=== PATIENT | male | born 1970 | race Hispanic/Latino ===

== ENCOUNTER 2020-11-18 22:03 | Inpatient (IN) | payer SELFPAY ==
[~2020-11-18] VITALS: Ht 172.7 cm; Wt 62.3 kg
[2020-11-18 22:07] VITALS: BP 128/55
[2020-11-18 23:11] VITALS: BP 99/57
[2020-11-18] MEDS ORDERED: 0.9%NACL 50ML IV ONE (23:30)
[2020-11-18] MEDS ORDERED: VANCOMYCIN 1G VIAL IVPB ONE (23:30)
[2020-11-18] MEDS ORDERED: 0.9% NACL 250ML IVPB ONE (23:30)
[2020-11-18] MEDS ORDERED: PIP/TAZ ZOSYN 3.375G 3.375 GM VIAL IVPB ONE (23:30)
[2020-11-19] VITALS (7 sets, daily range): BP systolic 97–134; BP diastolic 53–69
[2020-11-19 00:37] LABS: BASOPHILS % (AUTO) 0.4 % (0.0-5.0); EOSINOPHILS % (AUTO) 3.6 % (0.0-8.0); HEMATOCRIT 32.1 % (42-54); LYMPHOCYTES % (AUTO) 13.1 % (21.0-51.0); MEAN CORPUSCULAR HEMOGLOBIN 25.2 pg (27.0-33.0); MEAN CORPUSCULAR HGB CONC 32.1 g/dL (32.0-36.0); MEAN CORPUSCULAR VOLUME 78.7 fL (79-99); MONOCYTES % (AUTO) 8.6 % (3.0-13.0); PLATELET COUNT (AUTO) 354 K/uL (130-400); RED BLOOD CELL COUNT(AUTO) 4.08 MIL/uL (4.50-6.20); RED CELL DISTRIBUTION WIDTH 15.4 % (11.0-15.5); WHITE BLOOD COUNT (AUTO) 9.5 K/uL (4.8-10.8)
[2020-11-19 00:47] LABS: CREATININE 1.1 mg/dL (0.5-1.5); POTASSIUM 3.4 mmol/L (3.5-5.1)
[2020-11-19 00:51] LABS: BILIRUBIN,TOTAL 0.4 mg/dL (0.2-1.0); TOTAL PROTEIN, SERUM 8.6 g/dL (6.0-8.3)
[2020-11-19] MEDS ORDERED: ZOSYN 3.375GM+NS 50ML 50 ML IV ONE (01:34)
[2020-11-19] MEDS ORDERED: VANCOMYCIN KIT 250 ML IV ONE (01:34)
[2020-11-19] MEDS ORDERED: ZOSYN 3.375GM+NS 50ML 50 ML IV SCH (02:00)
[2020-11-19 02:11] LABS: APPEARANCE,URINE Clear (CLEAR); BILIRUBIN,URINE Negative (NEGATIVE); COLOR,URINE Orange (YELLOW); GLUCOSE, URINE (UA) Negative (NEGATIVE); KETONES,URINE Negative (NEGATIVE); LEUKOCYTE ESTERASE ,URINE Trace (NEGATIVE); NITRATE,URINE Negative (NEGATIVE); OCCULT BLOOD,URINE Negative (NEGATIVE); PH,URINE 5.5 (5.0-8.0); PROTEIN,URINE POS 1+ mg/dL (NEGATIVE)
[2020-11-19 02:20] LABS: BACTERIA,URINE Few /HPF (None Seen); RBC,URINE None Seen /HPF (0-1); SQUAMOUS EPITHELIAL CELL,UR 0-2 /HPF (0-2); URIC ACID CRYSTALS,URINE Rare /LPF (None Seen); WBC,URINE 0-1 /HPF (0-1)
[2020-11-19] MEDS ORDERED: VANCOMYCIN PROTOCOL PER PHARMACY IV PRN (03:00)
[2020-11-19] MEDS ORDERED: ONDANSETRON 4MG INJ IV PRN (03:00)
[2020-11-19] MEDS ORDERED: 0.9%NACL 1000ML 1,000 ML IV SCH (03:00)
[2020-11-19] MEDS ORDERED: ACETAMINOPHEN 325 MG TAB PO PRN ×2 (03:00)
[2020-11-19] MEDS ORDERED: NITROGLYCERIN 0.4 MG SL TAB SL PRN (03:00)
[2020-11-19] MEDS: 0.9%NACL 1000ML 1,000 ML IV SCH ×2 (03:09→16:23)
[2020-11-19] MEDS ORDERED: KCL 20 MEQ ERTAB PO ONE (03:30)
[2020-11-19 03:42] LABS: HEMOGLOBIN A1C 6.2 % (4.0-6.0)
[2020-11-19 06:30] LABS: INR 1.01 (0.85-1.15)
[2020-11-19] MEDS ORDERED: POTASSIUM CHLORIDE 10% ELIXIR 20 MEQ/15 ML UDCUP PO PRN (07:30)
[2020-11-19] MEDS ORDERED: POTASSIUM CHLORIDE 20MEQ/100ML 100 ML IV PRN (07:30)
[2020-11-19] MEDS ORDERED: KCL 20 MEQ ERTAB PO PRN (07:30)
[2020-11-19] MEDS ORDERED: LIDOCAINE HCL-MPF 1% 2ML VIAL IV PRN (07:30)
[2020-11-19] MEDS ORDERED: 0.9% NACL 250ML 250 ML ONE ×2 (10:10→21:43)
[2020-11-19] MEDS: FAMOTIDINE 20MG TAB PO SCH ×2 (10:12→21:47)
[2020-11-19] MEDS: VANCOMYCIN KIT 250 ML IV SCH ×2 (10:13→21:49)
[2020-11-19] MEDS: ENOXAPARIN SODIUM 30 MG/0.3 ML SQ SCH (10:13)
[2020-11-19] MEDS: ZOSYN 3.375GM+NS 50ML 50 ML IV SCH ×3 (10:13→21:50)
[2020-11-19] MEDS: TRAMADOL HCL 50 MG TABLET PO PRN (21:47)
[2020-11-19] MEDS: HYDROXYZINE 25 MG TABLET PO PRN (21:48)
[2020-11-20] VITALS: BP 145/79
[2020-11-20] MEDS: TRAMADOL HCL 50 MG TABLET PO PRN ×2 (03:11→10:53)
[2020-11-20 04:00] VITALS: BP_SYST 121; BP_SYST 129; BP_DIAS 54; BP_DIAS 68
[2020-11-20] MEDS: HYDROXYZINE 25 MG TABLET PO PRN (04:08)
[2020-11-20] MEDS: ZOSYN 3.375GM+NS 50ML 50 ML IV SCH ×3 (04:08→21:30)
[2020-11-20] MEDS: 0.9%NACL 1000ML 1,000 ML IV SCH ×3 (04:12→19:00)
[2020-11-20 07:12] LABS: RAPID PLASMA REAGIN NONREACTIVE (NONREACTIVE)
[2020-11-20 08:00] VITALS: BP 139/77
[2020-11-20] MEDS: ENOXAPARIN SODIUM 30 MG/0.3 ML SQ SCH (09:00)
[2020-11-20] MEDS: VANCOMYCIN KIT 250 ML IV SCH (10:50)
[2020-11-20] MEDS: NICOTINE 21 MG/ 24 HR PATCH TD SCH (10:51)
[2020-11-20] MEDS: FAMOTIDINE 20MG TAB PO SCH ×2 (10:51→21:30)
[2020-11-20 12:00] VITALS: BP 142/71
[2020-11-20] MEDS: LINEZOLID 600 MG/ISO-OSM 300 ML IV SCH (15:05)
[2020-11-20 16:00] VITALS: BP 140/173
[2020-11-20 20:00] VITALS: BP 132/74
[2020-11-20] MEDS: HYDROXYZINE 25 MG TABLET PO SCH (21:30)
[2020-11-20] MEDS: TRAZODONE HCL 100 MG TABLET PO SCH (21:30)
[2020-11-21] VITALS (26 sets, daily range): BP systolic 91–136; BP diastolic 55–78
[2020-11-21] MEDS: LINEZOLID 600 MG/ISO-OSM 300 ML IV SCH ×2 (01:41→11:30)
[2020-11-21] MEDS: KETOROLAC 30MG VIAL (30MG/ML) IV PRN ×2 (03:49→16:26)
[2020-11-21] MEDS: 0.9%NACL 1000ML 1,000 ML IV SCH ×2 (05:00→23:44)
[2020-11-21] MEDS: ZOSYN 3.375GM+NS 50ML 50 ML IV SCH ×3 (05:22→20:37)
[2020-11-21] MEDS: PAROXETINE HCL 20 MG TABLET PO SCH (09:00)
[2020-11-21] MEDS: HYDROXYZINE 25 MG TABLET PO SCH ×2 (09:00→20:37)
[2020-11-21] MEDS: FAMOTIDINE 20MG TAB PO SCH ×2 (09:00→20:37)
[2020-11-21] MEDS: ENOXAPARIN SODIUM 30 MG/0.3 ML SQ SCH (09:00)
[2020-11-21] MEDS: NICOTINE 21 MG/ 24 HR PATCH TD SCH (09:00)
[2020-11-21] MEDS ORDERED: LACTATED RINGERS 1000ML 1,000 ML IV ONE (10:59)
[2020-11-21] MEDS ORDERED: PROPOFOL 10 MG/ML 20ML VIAL IV ONE (11:25)
[2020-11-21] MEDS ORDERED: LIDOCAINE PF 100MG/5ML (2%) SYRINGE 5ML ONE (11:25)
[2020-11-21] MEDS ORDERED: FENTANYL CITRATE PF 50 MCG/1 ML 2ML VIAL ONE ×2 (11:25→12:22)
[2020-11-21] MEDS ORDERED: GLYCOPYRROLATE 1 MG/5 ML SYRINGE ONE (11:52)
[2020-11-21] MEDS ORDERED: BUPIVACAINE/EPI/PF 0.25% 10ML VIAL IJ ONE (12:18)
[2020-11-21] MEDS ORDERED: BUPIVACAINE/EPI/PF 0.25% 30ML VIAL IJ ONE (12:18)
[2020-11-21] MEDS: TRAZODONE HCL 100 MG TABLET PO SCH (20:37)
[2020-11-22] VITALS (7 sets, daily range): BP systolic 107–130; BP diastolic 64–83
[2020-11-22] MEDS: LINEZOLID 600 MG/ISO-OSM 300 ML IV SCH ×2 (00:33→11:19)
[2020-11-22 05:11] LABS: HEPATITIS A ANTIBODY IGM Negative (Negative); HEPATITIS B CORE IGM Negative (Negative); HEPATITIS Bs ANTIGEN SCREEN P Negative (Negative)
[2020-11-22] MEDS: ZOSYN 3.375GM+NS 50ML 50 ML IV SCH ×3 (05:42→20:48)
[2020-11-22] MEDS: NICOTINE 21 MG/ 24 HR PATCH TD SCH (08:37)
[2020-11-22] MEDS: HYDROXYZINE 25 MG TABLET PO SCH ×2 (08:37→20:48)
[2020-11-22] MEDS: PAROXETINE HCL 20 MG TABLET PO SCH (08:38)
[2020-11-22] MEDS: ENOXAPARIN SODIUM 30 MG/0.3 ML SQ SCH (08:38)
[2020-11-22] MEDS: FAMOTIDINE 20MG TAB PO SCH ×2 (08:38→20:48)
[2020-11-22] MEDS: 0.9%NACL 1000ML 1,000 ML IV SCH ×2 (11:00→20:47)
[2020-11-22] MEDS: KETOROLAC 30MG VIAL (30MG/ML) IV PRN (18:25)
[2020-11-22] MEDS: TRAZODONE HCL 100 MG TABLET PO SCH (20:48)
[2020-11-23] MEDS: LINEZOLID 600 MG/ISO-OSM 300 ML IV SCH (00:01)
[2020-11-23 03:23] VITALS: BP 115/66
[2020-11-23] MEDS: ZOSYN 3.375GM+NS 50ML 50 ML IV SCH (05:30)
[2020-11-23] MEDS: 0.9%NACL 1000ML 1,000 ML IV SCH (05:30)
[2020-11-23 08:20] VITALS: BP 103/64
[2020-11-23] MEDS: NICOTINE 21 MG/ 24 HR PATCH TD SCH (09:36)
[2020-11-23] MEDS: FAMOTIDINE 20MG TAB PO SCH ×2 (09:37→20:05)
[2020-11-23] MEDS: PAROXETINE HCL 20 MG TABLET PO SCH (09:37)
[2020-11-23] MEDS: HYDROXYZINE 25 MG TABLET PO SCH ×2 (09:37→20:05)
[2020-11-23] MEDS: ENOXAPARIN SODIUM 30 MG/0.3 ML SQ SCH (09:38)
[2020-11-23] MEDS: KETOROLAC 30MG VIAL (30MG/ML) IV PRN ×2 (09:39→11:29)
[2020-11-23] MEDS: CEFAZOLIN SODIUM 1 GM VIAL IVP SCH ×2 (11:33→19:06)
[2020-11-23 11:46] VITALS: BP 127/79
[2020-11-23] MEDS: METRONIDAZOLE 500 MG TABLET PO SCH ×2 (15:32→22:41)
[2020-11-23 18:27] VITALS: BP 146/71
[2020-11-23 20:00] VITALS: BP 131/76
[2020-11-23] MEDS: TRAZODONE HCL 100 MG TABLET PO SCH (20:05)
[2020-11-24] VITALS: BP 109/64
[2020-11-24] MEDS: CEFAZOLIN SODIUM 1 GM VIAL IVP SCH ×3 (03:11→18:11)
[2020-11-24 04:00] VITALS: BP 113/80
[2020-11-24] MEDS: METRONIDAZOLE 500 MG TABLET PO SCH ×3 (05:27→23:39)
[2020-11-24 08:00] VITALS: BP 107/69
[2020-11-24] MEDS: FAMOTIDINE 20MG TAB PO SCH ×2 (08:39→20:16)
[2020-11-24] MEDS: PAROXETINE HCL 20 MG TABLET PO SCH (08:39)
[2020-11-24] MEDS: NICOTINE 21 MG/ 24 HR PATCH TD SCH (08:40)
[2020-11-24] MEDS: HYDROXYZINE 25 MG TABLET PO SCH ×2 (08:40→20:16)
[2020-11-24] MEDS: ENOXAPARIN SODIUM 30 MG/0.3 ML SQ SCH (08:41)
[2020-11-24 11:53] VITALS: BP 116/67
[2020-11-24] MEDS ORDERED: HYDR-3422 PO (12:13)
[2020-11-24] MEDS ORDERED: PARO-66 PO (12:13)
[2020-11-24] MEDS ORDERED: CEPH500C2 PO (12:13)
[2020-11-24] MEDS ORDERED: TRAZ-258 PO (12:13)
[2020-11-24 16:00] VITALS: BP 124/79
[2020-11-24] MEDS: KETOROLAC 30MG VIAL (30MG/ML) IV PRN (18:30)
[2020-11-24 20:00] VITALS: BP 140/82
[2020-11-24] MEDS: TRAZODONE HCL 100 MG TABLET PO SCH (20:16)
[2020-11-25] VITALS: BP 110/72
[2020-11-25] MEDS: CEFAZOLIN SODIUM 1 GM VIAL IVP SCH ×2 (04:03→10:44)
[2020-11-25 04:17] VITALS: BP 116/70
[2020-11-25] MEDS: METRONIDAZOLE 500 MG TABLET PO SCH (07:09)
[2020-11-25 08:00] VITALS: BP 109/79
[2020-11-25] MEDS: FAMOTIDINE 20MG TAB PO SCH (09:16)
[2020-11-25] MEDS: NICOTINE 21 MG/ 24 HR PATCH TD SCH (09:17)
[2020-11-25] MEDS: PAROXETINE HCL 20 MG TABLET PO SCH (09:17)
[2020-11-25] MEDS: HYDROXYZINE 25 MG TABLET PO SCH (09:17)
[2020-11-25] MEDS: ENOXAPARIN SODIUM 30 MG/0.3 ML SQ SCH (09:26)
== END 2020-11-25 11:00 | disposition home or self-care (01) | DRG 603 ==
LOC: EDH 22:14 → EDHIP 22:15 → 3DH 11-19 04:12
PROVIDERS: ADMIT Internal Medicine; ATTEND Internal Medicine
PROC: 0HBHXZZ Excision of Right Upper Leg Skin, External Approach (ICD-10-PCS; 2020-11-21)
PROC: 0HBJXZZ Excision of Left Upper Leg Skin, External Approach (ICD-10-PCS; principal; 2020-11-21 11:37)
DX: L02.415 Cutaneous abscess of right lower limb (principal); R45.851 Suicidal ideations; R64 Cachexia; E87.1 Hypo-osmolality and hyponatremia; L02.416 Cutaneous abscess of left lower limb; L03.119 Cellulitis of unspecified part of limb; E87.6 Hypokalemia; F11.10 Opioid abuse, uncomplicated; L89.319 Pressure ulcer of right buttock, unspecified stage; L89.329 Pressure ulcer of left buttock, unspecified stage; D50.9 Iron deficiency anemia, unspecified; L03.116 Cellulitis of left lower limb; L03.115 Cellulitis of right lower limb; E87.5 Hyperkalemia; F17.210 Nicotine dependence, cigarettes, uncomplicated; F31.9 Bipolar disorder, unspecified; F41.1 Generalized anxiety disorder; F60.7 Dependent personality disorder; I45.10 Unspecified right bundle-branch block; R00.1 Bradycardia, unspecified; F19.10 Other psychoactive substance abuse, uncomplicated; B95.61 Methicillin susceptible Staphylococcus aureus infection as the cause of diseases classified elsewhere; E03.9 Hypothyroidism, unspecified; Z59.0 Homelessness; Z79.899 Other long term (current) drug therapy; Z80.0 Family history of malignant neoplasm of digestive organs; Z91.19 Patient's noncompliance with other medical treatment and regimen; Z20.822 Contact with and (suspected) exposure to COVID-19
CPT/HCPCS: 36415; 71045; 74176; 80053; 80074; 81001; 83036; 83605; 83735; 84145; 85025; 85610; 85651; 85730; 86140; 86592; 86701; 87040; 87070; 87076; 87077; 87186; 87205; 87390; 87635; 87641; 93005; A6266; G0378; J0690; J1650; J1885; J2001; J2020; J2543; J2704; J3010; J3370; J3490; J7030; J7050; J7120